=== PATIENT | female | born 2000 | race Caucasian/White ===

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

== ENCOUNTER 2020-06-28 19:24 | Emergency (ER) | payer BC ==
--- NOTE | 2020-06-28 20:20 | EDM.PDOC ---
ED HPI GENERAL MEDICAL PROBLEM - General Chief Complaint: Syncope Stated Complaint: FEVER, PAIN-RELATED KNEE Time Seen by Provider: 06/28/20 19:59 - History of Present Illness INITIAL COMMENTS - FREE TEXT/NARRATIVE: History of present illness: Patient is about 2 weeks post knee surgery and left. After stitches were removed she said she is doing pretty well. She does have slight feverish feeling and does have increased pain after she twisted her knee and bent it behind her 2 days ago. The patient got lightheaded in the shower. She called her boyfriend. He is a witness and he came to her and let her down slowly as she lost consciousness. She was very pale when he got there. She was awake when he got there. She had what sounds like a brief grand mal seizure for less than a minute and then was coherent within a minute. At first she was confused. Patient has had a near fainting episode and possible fainting episode in the past. At one time because of alcohol intoxication she had a seizure. She has no family history of epilepsy. [] Review of systems: As per history of present illness and below otherwise all systems reviewed and negative. Past medical history: As per history of present illness and as reviewed below otherwise noncontributory. Surgical history: As per history of present illness and as reviewed below otherwise noncontributory. Social history: No reported history of drug or alcohol abuse. Family history: As per history of present illness and as reviewed below otherwise noncontributory. Physical exam: Constitutional - well developed, well-nourished and in no acute distress HEENT - normocephalic, no evidence of trauma - external nose and mouth normal - no mass in neck and no JVD - mucosae moist EYES - full EOM, PERRL, no icterus - no evidence of inflammation, injection, or drainage Respiratory - no respiratory distress, equal bilateral expansion, lungs clear to auscultation and no abnormal lung sounds Cardiovascular - Regular Rhythm with S1 and S2 appreciated and no murmur, gallop or rub. GI - abdomen soft without distension or organomegaly - normal bowel sounds - no guard or rebound Musculoskeletal -left knee is swollen. Steri-Strips over arthroscopy incisions. There is several areas of tenderness. There is no heat in the left knee and she is able to tolerate passive range of motion and slight active range of motion. This no gross deformity of long bones or joints - no tenderness, swelling or edema Neurologic - Alert and oriented times four - CN II-XII grossly intact - motor sensory and coordination symmetrically normal Psychiatric - appropriate mood and affect with normal thought content Hematologic - No petechiae or purpura - mucosa appropriate color and sclera not pale - normal nail bed color and refill Integument - no rash or evidence of trauma - normal turgor Diagnostics: [] Therapeutics: [] Impression: [] Plan: [] Definitive disposition and diagnosis as appropriate pending reevaluation and review of above. left knee Pain Score (Numeric/FACES): 5 - Related Data Allergies Allergy/AdvReac Type Severity Reaction Status Date / Time No Known Allergies Allergy Verified 06/28/20 19:49 Home Meds: Home Meds Non-Formulary Medication [NF Drug] 1 each PO DAILY 06/28/20 [History] Past Medical History - Past Health History Medical/Surgical History: Denies Medical/Surgical History - Infectious Disease History Infectious Disease History: Reports: Chicken Pox, Novel Coronavirus Social & Family History - Recreational Drug Use Recreational Drug Type: Reports: Marijuana/Hashish ED ROS GENERAL - Review of Systems Review Of Systems: Comprehensive ROS is negative, except as noted in HPI. ED EXAM, GENERAL - Physical Exam Exam: See Below Free Text/Narrative:: My physical exam is in the HPI #1 Interpretation EKG Interpretation Comments: EKG normal sinus rhythm heart rate 96 SD interval 130 QT 410 Dalton XVII enlarged P waves. QRS normal ST and T normal. Impression no acute injury. No prior for comparison. Course - Vital Signs Text/Narrative:: Ultrasound failed to reveal a DVT. Last Recorded V/S: Last Vital Signs Temp 36.9 C 06/28/20 19:50 Pulse 109 H 06/28/20 19:50 Resp 18 06/28/20 19:50 BP 136/80 06/28/20 19:50 Pulse Ox 98 06/28/20 19:50 - Orders/Labs/Meds Orders: Active Orders 24 hr Category Date Time Status EKG Documentation Completion [RC] STAT Care 06/28/20 19:58 Active Venous Doppler Lwr Ext Lt [US] Stat Exams 06/28/20 21:17 Ordered PROCALCITONIN [REF] Stat Lab 06/28/20 20:34 Received Labs: Laboratory Tests 0406/28/20 06/28/20 Range/Units 20:34 20:34 20:34 WBC 9.42 (4.0-11.0) K/uL RBC 4.73 (4.30-5.90) M/uL Hgb 13.0 (12.0-16.0) g/dL Hct 40.6 (36.0-46.0) % MCV 85.8 (80.0-98.0) fL MCH 27.5 (27.0-32.0) pg MCHC 32.0 (31.0-37.0) g/dL RDW Std Deviation 44.5 (28.0-62.0) fl RDW Coeff of Sherman 14 (11.0-15.0) % Plt Count 348 (150-400) K/uL MPV 11.50 (7.40-12.00) fL Neut % (Auto) 71.3 (48.0-80.0) % Lymph % (Auto) 17.9 (16.0-40.0) % Burnet % (Auto) 9.4 (0.0-15.0) % Eos % (Auto) 1.2 (0.0-7.0) % Baso % (Auto) 0.2 (0.0-1.5) % Neut # (Auto) 6.7 H (1.4-5.7) K/uL Lymph # (Auto) 1.7 (0.6-2.4) K/uL Burnet # (Auto) 0.9 H (0.0-0.8) K/uL Eos # (Auto) 0.1 (0.0-0.7) K/uL Baso # (Auto) 0.0 (0.0-0.1) K/uL Nucleated RBC % 0.0 /100WBC Nucleated RBCs # 0 K/uL Sodium 142 (136-145) mmol/L Potassium 3.8 (3.5-5.1) mmol/L Chloride 107 (98-107) mmol/L Carbon Dioxide 23.8 (21.0-32.0) mmol/L BUN 11 (7.0-18.0) mg/dL Creatinine 1.0 (0.6-1.0) mg/dL Est Cr Clr Drug Dosing 97.85 mL/min Estimated GFR (MDRD) > 60.0 ml/min Glucose 101 (74-106) mg/dL Calcium 8.6 (8.5-10.1) mg/dL Magnesium 1.9 (1.8-2.4) mg/dL Total Bilirubin 0.2 (0.2-1.0) mg/dL AST 18 (15-37) IU/L ALT 21 (14-63) IU/L Alkaline Phosphatase 58 (46-116) U/L Total Protein 7.3 (6.4-8.2) g/dL Albumin 3.3 L (3.4-5.0) g/dL Globulin 4.0 (2.6-4.0) g/dL Albumin/Globulin Ratio 0.8 L (0.9-1.6) HCG, Qual NEGATIVE (NEG) Departure - Departure Time of Disposition: 22:21 Disposition: Home, Self-Care 01 Condition: Good Clinical Impression: Vaso vagal episode, Syncope, Seizure - Discharge Information Instructions: Seizure, Adult, [id number], Syncope, [id number] Referrals: PCP,None [Primary Care Provider] - Forms: ED Department Discharge Additional Instructions: [facility] - Neurology Professional [facility] [address] [place] [address], [address] [place] [address] It is important to see the neurologist in view of the fact that in your lifetime you have had 2 seizures despite the fact that we have a good explanation for each of them. [facility] - Primary Care [address] [place] [id number] [id number] The following information is given to patients seen in the emergency department who are being discharged to home. This information is to outline your options for follow-up care. We provide all patients seen in our emergency department with a follow-up referral. The need for follow-up, as well as the timing and circumstances, are variable depending upon the specifics of your emergency department visit. If you don't have a primary care physician on staff, we will provide you with a referral. We always advise you to contact your personal physician following an emergency department visit to inform them of the circumstance of the visit and for follow-up with them and/or the need for any referrals to a consulting specialist. The emergency department will also refer you to a specialist when appropriate. This referral assures that you have the opportunity for follow-up care with a specialist. All of these measure are taken in an effort to provide you with optimal care, which includes your follow-up. Under all circumstances we always encourage you to contact your private physician who remains a resource for coordinating your care. When calling for follow-up care, please make the office aware that this follow-up is from your recent emergency room visit. If for any reason you are refused follow-up, please contact the [facility] Emergency Department at and asked to speak to the emergency department charge nurse. Sepsis Event Note (ED) - Evaluation Sepsis Screening Result: No Definite Risk - Focused Exam Vital Signs: Vital Signs Temp Pulse Resp BP Pulse Ox 06/28/20 19:50 36.9 C 109 H 18 136/80 98 - My Orders Last 24 Hours: My Active Orders 06/28/20 19:58 EKG Documentation Completion [RC] STAT 06/28/20 20:34 PROCALCITONIN [REF] Stat 06/28/20 21:17 Venous Doppler Lwr Ext Lt [US] Stat - Assessment/Plan Last 24 Hours: My Active Orders 06/28/20 19:58 EKG Documentation Completion [RC] STAT 06/28/20 20:34 PROCALCITONIN [REF] Stat 06/28/20 21:17 Venous Doppler Lwr Ext Lt [US] Stat
[2020-06-28 21:12] LABS: BLOOD UREA NITROGEN,BUN 11 mg/dL (7.0-18.0); CARBON DIOXIDE,CO2 23.8 mmol/L (21.0-32.0); CHLORIDE,CL 107 mmol/L (98-107); GLUCOSE RANDOM 101 mg/dL (74-106); POTASSIUM,K 3.8 mmol/L (3.5-5.1); SODIUM,NA 142 mmol/L (136-145)
--- NOTE | 2020-06-28 22:37 | US ---
INDICATION: Left medial knee pain TECHNIQUE: Ultrasound venous duplex left lower extremity. Reynolds-scale, color Doppler, and spectral Doppler imaging were performed with compression and augmentation. COMPARISON: 06/07/2020 FINDINGS: Deep veins: The left common femoral, femoral, popliteal, and visualized calf veins are fully compressible, demonstrate normal color flow, and normal response to mechanical augmentation. The Duplex Doppler waveforms are normal in appearance. Superficial veins: The visualized greater saphenous and superficial veins of the leg and calf are unremarkable. Soft tissue: No masses or cysts are identified. No adenopathy is seen. IMPRESSION: 1. No sonographic evidence of acute deep venous thrombosis seen. Dictated by: Jeremiah Jackson MD @ 06/28/2020 22:36:37 (Electronically Signed)
== END 2020-06-28 22:45 | disposition home or self-care (01) ==
LOC: MW.ED 19:24
DX: R55 Syncope and collapse (principal); R56.9 Unspecified convulsions; M25.562 Pain in left knee
CPT/HCPCS: 36415; 80053; 83735; 84145; 84703; 85025; 93971-26-LT; 93971-LT; 99284-25

== ENCOUNTER 2024-04-03 18:35 | Emergency (ER) | payer BC ==
[2024-04-03] MEDS ORDERED: Sodium Chloride 0.9% 10 ML Syringe FLUSH PRN (21:06)
[2024-04-03] MEDS ORDERED: Sodium Chloride 0.9% 2.5 ML Syringe FLUSH PRN (21:06)
[2024-04-03] MEDS: Ketorolac 30 MG/ML SDV IVPUSH STA (21:41)
[2024-04-03] MEDS: Lactated Ringers 1,000 ML IV STA (21:41)
[2024-04-03] MEDS: Magnesium Sulfate/Water Premix 2 GM in Premix Bag 1 BAG IV STA (21:41)
[2024-04-03] MEDS: Ondansetron 4 MG/2 ML SDV IVPUSH STA (21:41)
== END 2024-04-03 22:06 | disposition home or self-care (01) ==
LOC: MW.ED 18:35
DX: J39.9 Disease of upper respiratory tract, unspecified (principal); Z86.16 Personal history of COVID-19; Z75.8 Other problems related to medical facilities and other health care
CPT/HCPCS: 87428-QW; 87651-QW; 99284